=== PATIENT | male | born 1980 | race Caucasian/White ===

== ENCOUNTER → 2016-10-14 14:04 | Outpatient (CLI) | payer MEDICAID ==
[2016-10-14 14:34] LABS: UDS - AMPHET NEGATIVE QUAL (NEGATIVE); UDS - BARB NEGATIVE QUAL (NEGATIVE); UDS - BENZO NEGATIVE QUAL (NEGATIVE); UDS - COCAINE NEGATIVE QUAL (NEGATIVE); UDS - METH NEGATIVE QUAL (NEGATIVE); UDS - OPIATE NEGATIVE QUAL (NEGATIVE); UDS - PCP NEGATIVE QUAL (NEGATIVE); UDS - THC POSITIVE QUAL (NEGATIVE)
== END | disposition home or self-care (01) ==
LOC: D.LAB 08:30
PROVIDERS: Emergency Medicine
DX: F11.20 Opioid dependence, uncomplicated (principal)

== ENCOUNTER 2019-01-05 21:41 | Emergency (ER) | payer MEDICAID ==
[~2019-01-05] VITALS: Ht 177.8 cm; Wt 75.0 kg
[2019-01-05 21:54] VITALS: Ht 177.8 cm; Wt 75.0 kg
[2019-01-05] MEDS ORDERED: BUPRENORPHIN-N1 EACH (21:56)
[2019-01-05] MEDS ORDERED: VOLTAREN75 MG PO (23:34)
[2019-01-05] MEDS ORDERED: BACTRIM 400-801 TAB PO (23:34)
[2019-01-05 23:48] VITALS: BP 132/74
== END 2019-01-05 23:48 | disposition home or self-care (01) ==
LOC: D.ER 21:41
DX: S91.114A Laceration without foreign body of right lesser toe(s) without damage to nail, initial encounter (principal); W26.0XXA Contact with knife, initial encounter; Y93.89 Activity, other specified; Y92.89 Other specified places as the place of occurrence of the external cause